=== PATIENT | female | born 1960 | race Caucasian/White ===

== ENCOUNTER 2016-06-16 09:45 | Outpatient (CLI) | payer MEDICARE ==
[2016-06-16 10:28] LABS: Cardiac Risk 4.2 (Less than 4.5)
== END 2016-06-16 09:46 | disposition home or self-care (01) ==
LOC: MADLABBHPM 09:45
PROVIDERS: ATTEND Family Medicine
DX: E78.5 Hyperlipidemia, unspecified (principal)
CPT/HCPCS: 36415; 80061

== ENCOUNTER 2017-04-19 10:39 | Emergency (ER) | payer MEDICARE ==
--- NOTE | 2017-04-19 11:50 | RAD ---
LEFT LEG 2 VIEWS: Date: 04/19/17 HISTORY: Injury, left leg pain. FINDINGS/IMPRESSION: The left tibia and fibula are intact. POS: RAGHAVENDRA
== END 2017-04-19 12:25 | disposition short-term general hospital (02) ==
LOC: MADERS 10:39
DX: S80.12XA Contusion of left lower leg, initial encounter (principal); E78.00 Pure hypercholesterolemia, unspecified; E78.5 Hyperlipidemia, unspecified; F44.81 Dissociative identity disorder; Z79.899 Other long term (current) drug therapy; W55.12XA Struck by horse, initial encounter

== ENCOUNTER 2017-06-02 11:39 | Emergency (ER) | payer MEDICARE | END 2017-06-02 12:31 | disposition home or self-care (01) | LOC: MADERS 11:39 | DX: S60.031A Contusion of right middle finger without damage to nail, initial encounter (principal); S60.041A Contusion of right ring finger without damage to nail, initial encounter; I10 Essential (primary) hypertension; E78.5 Hyperlipidemia, unspecified; Z79.891 Long term (current) use of opiate analgesic; Z79.899 Other long term (current) drug therapy; V03.90XA Pedestrian on foot injured in collision with car, pick-up truck or van, unspecified whether traffic or nontraffic accident, initial encounter | CPT/HCPCS: 99283 ==

== ENCOUNTER 2017-06-10 10:30 | Outpatient (CLI) | payer MEDICARE ==
--- NOTE | 2017-06-10 12:07 | RAD ---
RIGHT HAND 3RD DIGIT 3 VIEWS: HISTORY: Injury 2 weeks ago. Pain. COMPARISON: None. FINDINGS: There is a small avulsive fracture involving the proximal aspect of the distal phalanx of the right 3 rd digit. There is extension into the articular surface. Associated soft tissue swelling. Nondispl aced fracture involving the proximal aspect of the distal phalanx of the 4th digit is also noted. No obvious intraarticular extension. IMPRESSION: Fractures involving the proximal aspect of the distal phalanx of the right hand 3rd and 4th digits. POS: CARLA
== END 2017-06-10 10:31 | disposition home or self-care (01) ==
LOC: MADRAD 10:30
PROVIDERS: ATTEND Family Medicine
DX: S69.91XA Unspecified injury of right wrist, hand and finger(s), initial encounter (principal); S62.632A Displaced fracture of distal phalanx of right middle finger, initial encounter for closed fracture; S62.635A Displaced fracture of distal phalanx of left ring finger, initial encounter for closed fracture

== ENCOUNTER 2017-10-04 16:46 | Outpatient (CLI) | payer MEDICARE | END 2017-10-04 16:47 | disposition home or self-care (01) | LOC: MADEKG 16:46 | PROVIDERS: ATTEND Family Medicine | DX: I49.9 Cardiac arrhythmia, unspecified (principal); R07.9 Chest pain, unspecified | CPT/HCPCS: 93005; 93010 ==

== ENCOUNTER 2019-05-01 10:44 | Outpatient (CLI) | payer MEDICARE ==
--- NOTE | 2019-05-01 11:35 | RAD ---
AP PELVIS: Date: 05/01/2019 HISTORY: Chronic bilateral hip pain. FINDINGS/IMPRESSION: There are degenerative changes in the hip joints bilaterally. No fracture, dislocation, or bony destr uction identified. POS: RAGHAVENDRA
--- NOTE | 2019-05-01 11:36 | RAD ---
LEFT HIP 2 VIEWS: Date: 05/01/2019 HISTORY: Left hip pain. FINDINGS: There are moderate degenerative changes in the left hip. No fracture, dislocation, or bony destructio n seen. IMPRESSION: Left hip osteoarthritis. POS: RAGHAVENDRA
--- NOTE | 2019-05-01 11:47 | RAD ---
RIGHT HIP 2 VIEWS: Date: 05/01/2019 HISTORY: Right hip pain. FINDINGS: There are moderate degenerative changes in the right hip joint. No fracture, dislocation, or bony jessi truction is seen. IMPRESSION: Right hip osteoarthritis. POS: RAGHAVENDRA
== END 2019-05-01 10:45 | disposition home or self-care (01) ==
LOC: MADRAD 10:44
PROVIDERS: ATTEND Family Medicine
DX: M25.551 Pain in right hip (principal); M25.552 Pain in left hip; R10.2 Pelvic and perineal pain; R73.03 Prediabetes; M16.0 Bilateral primary osteoarthritis of hip
CPT/HCPCS: 72170

== ENCOUNTER 2020-05-09 10:31 | Outpatient (CLI) | payer MEDICARE ==
[2020-05-09 10:47] LABS: #Eosinphils 0.2 thou/uL (0.0-0.7); #Lymphocytes 1.3 thou/uL (1.20-3.40); #Monocytes 0.4 thou/uL (0.11-0.59); #Neutrophils 3.4 thou/uL (1.40-6.50); %Basophils 0.9 % (0.0-1.0); %Lymphocytes 24.5 % (21.0-51.0); %Monocytes 7.8 % (0.0-10.0); %Neutrophils 63.8 % (42.0-75.0); Hemoglobin 14.2 g/dL (12.0-16.0); Mean Corpuscular HGB CONC 32.6 g/dL (32.0-36.0); Mean Corpuscular Hemoglobin 29.6 pg (27.0-31.0); Mean Corpuscular Volume 90.7 fL (78.0-98.0); Mean Platelet Volume 9.9 fL (7.4-10.4); Platelet Count 234 thou/uL (130-400); RBC Distribution Width 10.9 % (11.5-14.5); White Blood Cell (WBC) Count 5.3 thou/uL (4.8-10.8)
[2020-05-09 10:58] LABS: Amphetamine Not Detected (NotDetected); Barbiturates Screen Not Detected (NotDetected); Benzodiazepine Screen Not Detected (NotDetected); Cocaine Metabolite Screen Not Detected (NotDetected); Medtox Control Line Valid? VALID (VALID); Methadone Not Detected (NotDetected); Methamphetamine Not Detected (NotDetected); Opiate Screen Not Detected (NotDetected); Oxycodone Screen Not Detected (NotDetected); Phencyclidine (PCP) Not Detected (NotDetected); THC/Cannabinoid Screen Not Detected (NotDetected); Tricyclic Screen Not Detected (NotDetected)
[2020-05-09 11:06] LABS: ALT (SGPT) 26 U/L (8-55); AST (SGOT) 26 U/L (5-34); Albumin 4.3 g/dL (3.4-4.8); Alkaline Phosphatase 53 U/L (40-110); Anion Gap 12 mmol/L (10-20); BUN (Urea Nitrogen) 16 mg/dL (9.8-20.1); Bilirubin, Total 0.7 mg/dL (0.2-1.2); Calc. Creatinine Clearance 0 mL/min (70-130); Calcium 9.5 mg/dL (7.8-10.44); Carbon Dioxide 26 mmol/L (23-31); Cardiac Risk 3.3 (Less than 4.5); Chloride 104 mmol/L (98-107); Cholesterol 208 mg/dl (< 200 Desired); Glucose 85 mg/dL (80-115); HDL Cholesterol 63 mg/dL (>60 Neg Risk); LDL Cholesterol, Calculated 126 mg/dL; Potassium 4.2 mmol/L (3.5-5.1); Protein, Total 7.3 g/dL (5.8-8.1); Sodium 138 mmol/L (136-145); Triglycerides 96 mg/dL (Less than 150)
[2020-05-09 17:03] LABS: Hemoglobin A1c 5.7 % (4.0-6.0)
== END 2020-05-09 10:32 | disposition home or self-care (01) ==
LOC: MADLAB 10:31
PROVIDERS: ATTEND Family Medicine
DX: E78.00 Pure hypercholesterolemia, unspecified (principal); E55.9 Vitamin D deficiency, unspecified; E78.2 Mixed hyperlipidemia; F51.01 Primary insomnia; G89.29 Other chronic pain; R73.03 Prediabetes; I10 Essential (primary) hypertension; Z23 Encounter for immunization
CPT/HCPCS: 36415; 80053; 80061; 80306; 82306; 83036; 85025

== ENCOUNTER 2020-08-10 13:59 | Emergency (ER) | payer MEDICARE ==
[2020-08-10] MEDS ORDERED: Ketorolac Tromethamine 30 MG/ML VIAL ONE (15:04)
[2020-08-10] MEDS ORDERED: predniSONE 20 MG TAB ONE (15:04)
== END 2020-08-10 15:41 | disposition home or self-care (01) ==
LOC: MADERS 13:59
DX: S29.011A Strain of muscle and tendon of front wall of thorax, initial encounter (principal); E78.5 Hyperlipidemia, unspecified; E78.00 Pure hypercholesterolemia, unspecified; I10 Essential (primary) hypertension; Z79.899 Other long term (current) drug therapy; X50.1XXA Overexertion from prolonged static or awkward postures, initial encounter
CPT/HCPCS: 96372; 99284; J1885; J7512

== ENCOUNTER 2022-04-22 14:14 | Outpatient (CLI) | payer MEDICARE | END 2022-04-22 14:15 | disposition home or self-care (01) | LOC: MADRAD 14:14 | PROVIDERS: ATTEND Internal Medicine | DX: M51.9 Unspecified thoracic, thoracolumbar and lumbosacral intervertebral disc disorder (principal) | CPT/HCPCS: 72110 ==

== ENCOUNTER 2023-10-05 11:21 | Outpatient (CLI) | payer MEDICARE | END 2023-10-05 11:22 | disposition home or self-care (01) | LOC: MADLAB 11:21 | PROVIDERS: ATTEND Nurse Practitioner Family | DX: S99.912A Unspecified injury of left ankle, initial encounter (principal) ==